=== PATIENT | male | born 1940 | race Hispanic/Latino ===

== ENCOUNTER 2023-05-12 20:34 | Emergency (ER) | payer MEDICARE ==
[~2023-05-12] VITALS: Ht 177.8 cm; Wt 120.2 kg
[2023-05-12 21:47] LABS: BASOPHILS % 0.3 % (0.0-1.0); EOSINOPHILS % 0.2 % (0.0-6.0); HEMATOCRIT 33.8 % (38.2-49.6); HEMOGLOBIN 11.4 g/dL (14.0-18.0); LYMPHOCYTES % 8.2 % (18.0-39.1); MEAN CORPUSCULAR HEMOGLOBIN 30.8 pg (28-32); MEAN CORPUSCULAR HGB CONC 33.7 g/dL (31-35); MEAN CORPUSCULAR VOLUME 91.4 fL (81-99); MONOCYTES # (AUTO) 1.6 (0.2-0.8); MONOCYTES % 13.2 % (4.4-11.3); NEUTROPHILS # (AUTO) 9.1 (2.1-6.9); NEUTROPHILS % 77.3 % (38.7-80.0); PLATELET COUNT 223 x10e3/uL (140-360); RED CELL DISTRIBUTION WIDTH 13.2 % (11.7-14.4)
[2023-05-12 21:58] LABS: ANION GAP 16.3 mmol/L (8-16); CALCIUM 8.7 mg/dL (8.4-10.2); CREATININE, SERUM 1.51 mg/dL (0.72-1.25); POTASSIUM 3.3 mmol/L (3.5-5.1)
[2023-05-12 23:06] VITALS: BP 126/84; PULSE 74; RESP 18; TEMP 98.3; O2SAT 99
== END 2023-05-12 23:07 | disposition home or self-care (01) ==
LOC: ER 20:47
DX: I89.0 Lymphedema, not elsewhere classified (principal); I10 Essential (primary) hypertension; E78.5 Hyperlipidemia, unspecified
CPT/HCPCS: 36415; 80048; 85025; 93970; 99283

== ENCOUNTER 2023-09-08 14:01 | Outpatient (RCR) | payer MEDICARE ==
[~2023-09-08 14:01] MED LIST: MINERAL OIL/PETROLAT/GLYCERI 6OZ BTL ONE; MUPIROCIN 2% OINT 22 GM TUBE ONE; TRIAMCINOLONE ACET 0.1% CREAM 15 GM TUBE ONE
== END 2023-09-15 ==
LOC: WCC 14:01
PROVIDERS: ATTEND Family Medicine Adult Medicine
DX: S80.812A Abrasion, left lower leg, initial encounter (principal); S80.811A Abrasion, right lower leg, initial encounter; L98.8 Other specified disorders of the skin and subcutaneous tissue; L98.9 Disorder of the skin and subcutaneous tissue, unspecified; R60.0 Localized edema

== ENCOUNTER 2024-02-22 11:39 | Outpatient (RCR) | payer MEDICARE ==
[~2024-02-22 11:39] MED LIST changes: -MINERAL OIL/PETROLAT/GLYCERI 6OZ BTL ONE; -MUPIROCIN 2% OINT 22 GM TUBE ONE; -TRIAMCINOLONE ACET 0.1% CREAM 15 GM TUBE ONE; +TRYPSIN/BALSAM PERU/CASTOR OIL ONE
== END 2024-03-15 ==
LOC: WCC 11:39
PROVIDERS: ATTEND Internal Medicine Infectious Disease
DX: I83.12 Varicose veins of left lower extremity with inflammation (principal); I83.11 Varicose veins of right lower extremity with inflammation; R60.0 Localized edema

== ENCOUNTER 2024-05-13 08:00 | Outpatient (RCR) | payer MEDICARE ==
[~2024-05-13 08:00] MED LIST changes: +CLOTRIMAZOLE/BETAMETHASONE 45 GM CR TP ONE; +HYDROCORTISONE 1% CREAM 30 GM TUBE ONE; +MINERAL OIL/PETROLAT/GLYCERI 6OZ BTL ONE
[2024-05-13] MEDS ORDERED: MINERAL OIL/PETROLAT/GLYCERI 6OZ BTL ONE (12:51)
[2024-05-13] MEDS ORDERED: TRIAMCINOLONE ACET 0.1% CREAM 15 GM TUBE ONE (12:51)
[2024-05-13] MEDS ORDERED: TRYPSIN/BALSAM PERU/CASTOR OIL ONE (12:51)
== END 2024-05-13 13:02 | disposition home or self-care (01) ==
LOC: WCC 08:00
PROVIDERS: ATTEND Nurse Practitioner Family
DX: I87.312 Chronic venous hypertension (idiopathic) with ulcer of left lower extremity (principal); L97.828 Non-pressure chronic ulcer of other part of left lower leg with other specified severity; L03.116 Cellulitis of left lower limb; R60.0 Localized edema

== ENCOUNTER 2024-06-02 13:44 | Outpatient (RCR) | payer MEDICARE ==
[~2024-06-02 13:44] MED LIST changes: -HYDROCORTISONE 1% CREAM 30 GM TUBE ONE
== END 2024-06-15 ==
LOC: WCC 13:44
PROVIDERS: ATTEND Nurse Practitioner Family
DX: I87.312 Chronic venous hypertension (idiopathic) with ulcer of left lower extremity (principal); L97.828 Non-pressure chronic ulcer of other part of left lower leg with other specified severity; I83.12 Varicose veins of left lower extremity with inflammation; R60.0 Localized edema

== ENCOUNTER → 2025-05-08 | Outpatient (REF) | payer MEDICARE | LOC: US 09:40 | PROVIDERS: ATTEND Family Medicine | DX: R14.0 Abdominal distension (gaseous) (principal); K21.9 Gastro-esophageal reflux disease without esophagitis | CPT/HCPCS: 74246; 76700 ==